=== PATIENT | female | born 1995 | race African-American/Black ===

== ENCOUNTER 2019-02-06 20:39 | Emergency (ER) | payer OTHER ==
[~2019-02-06] VITALS: Ht 162.6 cm; Wt 59.0 kg
[2019-02-06 22:37] VITALS: BP 118/67
== END 2019-02-06 22:37 | disposition home or self-care (01) | DRG 563 ==
LOC: ED 20:39
DX: S46.911A Strain of unspecified muscle, fascia and tendon at shoulder and upper arm level, right arm, initial encounter (principal); S39.012A Strain of muscle, fascia and tendon of lower back, initial encounter; S70.02XA Contusion of left hip, initial encounter; V44.5XXA Car driver injured in collision with heavy transport vehicle or bus in traffic accident, initial encounter; Z33.1 Pregnant state, incidental